=== PATIENT | female | born 1995 | race Caucasian/White ===

== ENCOUNTER 2017-12-29 13:24 | Emergency (ER) | payer OTHER ==
[2017-12-29 13:30] VITALS: BP 157/98
[2017-12-29] MEDS ORDERED: CHLORDIAZEPOXIDE 25MG PREPK#6 BTL TAKEHOME ONE (15:06)
--- NOTE | 2017-12-29 15:06 | EDPHY ---
H & P Time Seen by Provider: 12/29/17 14:56 HPI/ROS: CHIEF COMPLAINT: Requests alcohol detox HISTORY OF PRESENT ILLNESS: 22-year-old female presents to the emergency department by private vehicle requesting alcohol detox. The patient states that she has been drinking heavily over last few weeks. She does not feel depressed and suicidal. She states her last drink was 2 days ago and would like to quit drinking. She states that she went to the [facility] and they told her to come to the emergency department for medical clearance and she is welcome back at the [facility]. Denies pain or chest or difficulty breathing. Denies abdominal pain. Denies fevers or chills. No urinary symptoms. She is unsure of her last tetanus shot. REVIEW OF SYSTEMS: Constitutional: No fever, no chills. Eyes: No double or blurry vision. ENT: No sore throat. Respiratory: No cough, no shortness of breath. Cardiac: No chest pain. Gastrointestinal: No abdominal pain, vomiting or diarrhea. Genitourinary: No dysuria. Musculoskeletal: No neck or back pain. Skin: No rashes. Neurological: No headache. Past Medical/Surgical History: Alcoholism Social History: Single Smoking Status: Never smoked Physical Exam: General Appearance: Alert, no distress. Eyes: Pupils equal and round. Extraocular motions are all intact. ENT: Mouth: Mucous membranes moist. Respiratory: No wheezing, rhonchi, or rales, lungs are clear to auscultation. Cardiovascular: Regular rate and rhythm. Gastrointestinal: Abdomen is soft and nontender, no masses, no rebound or guarding, bowel sounds normal. Neurological: Alert and oriented x 3, cranial nerves II through XII grossly intact Skin: Warm and dry, no rashes. Musculoskeletal: Nontender to palpate along the cervical, thoracic or lumbar spine. Neck is supple. Extremities: Full range of motion and no peripheral edema. Psychiatric: Patient is oriented X 3, there is no agitation. Constitutional: Initial Vital Signs Temperature (C) 37.2 C 12/29/17 13:27 Heart Rate 103 H 12/29/17 13:27 Respiratory Rate 16 12/29/17 13:27 Blood Pressure 157/98 H 12/29/17 13:27 O2 Sat (%) 97 12/29/17 13:27 O2 Delivery Mode Room Air Allergies/Adverse Reactions: hops Allergy (Verified 12/29/17 13:30) hops Allergy (Uncoded 12/29/17 13:30) Home Medications: Medication Instructions Recorded Bcp 12/29/17 Medical Decision Making ED Course/Re-evaluation: 22-year-old female presents to the emergency department by private vehicle with alcoholism and requesting detox. She was sent for medical clearance. Urine HCG was negative. Patient will be discharged to the addiction recovery Center with take-home pack of Librium. Differential Diagnosis: Including but not limited to depression, substance abuse, alcohol withdrawal, alcohol withdrawal seizure, electrolyte abnormality, Departure - Departure Disposition: Home, Routine, Self-Care Clinical Impression: Alcohol dependence Qualifiers: Substance use status: unspecified alcohol-induced disorder Qualified Code(s): F10.29 - Alcohol dependence with unspecified alcohol-induced disorder Condition: Good Instructions: Alcohol Dependence (ED) Additional Instructions: You are being discharged to the addiction recovery Center with a take-home pack of Librium to use as needed for symptoms of acute withdrawal from alcohol. Return to the emergency department if you develop abdominal pain, pain in her chest, difficulty breathing, or if you feel worse in any way. Referrals: [facility] [Outside] - As per Instructions
== END 2017-12-29 15:32 | disposition home or self-care (01) ==
DX: F10.20 Alcohol dependence, uncomplicated (principal)

== ENCOUNTER 2018-09-19 10:16 | Emergency (ER) | payer OTHER ==
--- NOTE | 2018-09-19 10:22 | EDPHY ---
H & P Time Seen by Provider: 09/19/18 10:18 HPI/ROS: CHIEF COMPLAINT: Right foot and ankle pain HISTORY OF PRESENT ILLNESS: 23-year-old female via private vehicle complaining of acute right foot and ankle pain after she sustained a mechanical fall sitting in a folding chair which then fell on top of her foot. This occurred last evening. She is unable to bear weight. Complaining of pain to the lateral foot and ankle. Intact skin. No proximal tibia or fibula pain.. PRIMARY CARE PROVIDER: REVIEW OF SYSTEMS: A ten point review of systems was performed and is negative with the exception of the items mentioned in the HPI PHYSICAL EXAM (Prior to examination, patient consented to physical exam, hands were washed and my usual and customary physical exam procedures followed) 1) GENERAL: Well-developed, well-nourished, alert and oriented. Appears to be in no acute distress. 2) HEAD: Normocephalic 3) HEENT: Pupils equal, round, reactive to light bilaterally. 4) LUNGS: Breathing comfortably. 5) MUSCULOSKELETAL: Tender to palpation lateral foot and lateral malleolus with no visible signs of trauma. proximal tibia and fibula nontender .5th MT nontender negative Dey test, compartments soft 6) SKIN: Intact 7) VASCULAR: DP,PT pulses and cap refill present and brisk DIFFERENTIAL DIAGNOSIS: in no particular order including but not limited to fracture, sprain, compartment syndrome Procedure: Crutches indications for crutch use discussed with patient. Patient fitted for crutches by ER staff. Observed ambulating with crutches. I think the patient has the capacity to safely use crutches. Usual and customary crutch walking precautions provided Procedure: Splint A derrick boot splint was applied by ER [employer] technician. After application of the splint I returned and re-examined the patient. The splint was adequately immobilizing the joint and distal to the splint the patient's circulation and sensation were intact. Patient shows no signs of compartment syndrome. Was given orthopedic precautions. Smoking Status: Never smoked Constitutional: Initial Vital Signs Temperature (C) 36.8 C 09/19/18 10:21 Heart Rate 87 09/19/18 10:21 Respiratory Rate 16 09/19/18 10:21 Blood Pressure 160/117 H 09/19/18 10:21 O2 Sat (%) 97 09/19/18 10:21 O2 Delivery Mode Room Air Allergies/Adverse Reactions: hops Allergy (Verified 12/29/17 13:30) hops Allergy (Uncoded 12/29/17 13:30) Home Medications: Medication Instructions Recorded Bcp 12/29/17 MDM/Departure - MDM Imaging Results: Imaging Impressions Ankle X-Ray 09/19/18 10:22 Impression: No acute osseous findings. Foot X-Ray 09/19/18 10:22 Impression: No acute osseous findings. Images reviewed myself ED Course/Re-evaluation: Re-evaluation with serial exams. Discussed her negative imaging results showing no osseous injury. She has been informed that occult fracture, osseous injury is not ruled out stressed the importance of follow-up with orthopedics. Placed in a Derrick boot, crutches, usual and customary orthopedic precautions instructions provided. She feels comfortable being discharged. No evidence of compartment syndrome. No evidence of infection at this time. Patient feels comfortable being discharged. All questions and concerns addressed by myself. Patient given my usual and customary discharge precautions and instructions regarding their clinical impression. Care of patient under supervision of secondary supervising physician Dr Echols. - Depart Disposition: Home, Routine, Self-Care Clinical Impression: Right foot sprain Qualifiers: Encounter type: initial encounter Qualified Code(s): S93.601A - Unspecified sprain of right foot, initial encounter Condition: Good Instructions: Foot Sprain (ED) Additional Instructions: Return to the ER immediately if you experience discoloration, have worsening pain, numbness, tingling, or any other symptoms that concern you. If you received x-rays in the emergency department today, be advised, that ligamentous , tendon, muscular, and other non-bony injury cannot be fully ruled out. Try to keep your affected extremity elevated above the level of your chest, and keep cold packs on the affected area, for the next 48 hours. Referrals: Zev Valentin MD [Medical Doctor] - 2-3 days, call for appt.
[2018-09-19 10:24] VITALS: BP 160/117
== END 2018-09-19 11:10 | disposition home or self-care (01) ==
DX: S93.601A Unspecified sprain of right foot, initial encounter (principal); W07.XXXA Fall from chair, initial encounter